=== PATIENT | female | born 1960 | race Caucasian/White ===

== ENCOUNTER 2017-10-13 15:34 | Emergency (ER) | payer OTHER ==
--- NOTE | 2017-10-13 15:37 | PDOC ---
Rapid Medical Evaluation Time Seen by Provider: 10/13/17 15:35 Medical Evaluation: Allergies Allergy/AdvReac Type Severity Reaction Status Date / Time SEAFOOD Allergy Swelling Uncoded 10/13/17 15:35 I have performed a brief in-person evaluation of this patient. The patient presents with a chief complaint of: swelling of right eye x 5 days Pertinent physical exam findings: right supraorbital swelling. I have ordered the following: nothing The patient will proceed to the ED for further evaluation. Discharge Disposition - Diagnosis Eye swelling, right - Referrals - Patient Instructions - Post Discharge Activity
[2017-10-13 15:38] VITALS: BP 143/91; PULSE 85; TEMP 98.6; BMI 29.9
--- NOTE | 2017-10-13 16:28 | PDOC ---
History of Present Illness - General Chief Complaint: Eye Problem Stated Complaint: RT EYE PAIN Time Seen by Provider: 10/13/17 15:35 - History of Present Illness Initial Comments: 57-year-old female with a past medical history of depression and hypertension presents for evaluation of right eye pain 5 days. She describes her pain as itchy worsen the morning gets better throughout the day no change in vision no other associated symptoms 10/13/17 16:25 Past History - Past Medical History Allergies/Adverse Reactions: Allergies Allergy/AdvReac Type Severity Reaction Status Date / Time SEAFOOD Allergy Swelling Uncoded 10/13/17 15:35 Home Medications: Ambulatory Orders Enalapril Maleate 5 mg PO DAILY 10/11/13 Simvastatin [Zocor -] 20 mg PO HS 10/11/13 Olopatadine HCl [Pataday] 1 drop OU DAILY #1 bottle 10/13/17 Sennosides [Senna] 8.6 mg PO DAILY 10/13/17 COPD: No DVT: No HTN: Yes Hypercholesterolemia: Yes Psychiatric Problems: Yes (DEPRESSION) - Suicide/Smoking/Psychosocial Hx Smoking History: Never smoked Have you smoked in the past 12 months: No Information on smoking cessation initiated: No Hx Alcohol Use: No Drug/Substance Use Hx: No Substance Use Type: None Review of Systems - Review of Systems HEENTM: Yes: Eye Pain All Other Systems: Reviewed and Negative *Physical Exam - Vital Signs Last Vital Signs Temp Pulse Resp BP Pulse Ox 98.6 F 85 18 143/91 100 10/13/17 15:37 10/13/17 15:37 10/13/17 15:37 10/13/17 15:37 10/13/17 15:37 - Physical Exam Comments: GENERAL: The patient is awake, alert, and fully oriented, in no acute distress. HEAD: Normal with no signs of trauma. EYES: sclera anicteric, conjunctiva clear. Pupils are equal round and reactive external ocular muscles are intact. There is mild upper lid swelling ENT: Ears normal NECK: Normal range of motion EXTREMITIES: Normal range of motion, no edema. No clubbing or cyanosis. No cords, erythema, or tenderness. NEUROLOGICAL: Cranial nerves II through XII grossly intact. Normal speech, normal gait. PSYCH: Normal mood, normal affect. SKIN: Warm, Dry, normal turgor, no rashes or lesions noted. 10/13/17 16:26 10/13/17 16:26 Medical Decision Making - Medical Decision Making 6 is most likely an ALLERGIC conjunctivitis I prescribed for her a Mastel stabilizer eyedrop. 10/13/17 16:26 *DC/Admit/Observation/Transfer Diagnosis at time of Disposition: Eye swelling, right, Allergic conjunctivitis - Discharge Dispostion Disposition: HOME Condition at time of disposition: Stable Decision to Admit order: No - Prescriptions Prescriptions: Olopatadine HCl [Pataday] 1 drop OU DAILY #1 bottle - Referrals Referrals: Daniel Taylor [Non Staff, Medical] - June Lara MD [Staff Physician] - Mike Palencia [Non Staff, Medical] - Eric Ott MD [Staff Physician] - Sammy Silver MD [Non Staff, Medical] - Rambo Scott [Non Staff, Medical] - Fara Orlando MD [Non Staff, Medical] - Moustapha Wang MD [Staff Physician] - Katlin Zambrano MD [Staff Physician] - - Patient Instructions Printed Discharge Instructions: Conjunctivitis, DI for Conjunctivitis Additional Instructions: Return to the emergency room should her symptoms worsen or go unresolved. Please use the eyedrops as directed. Follow-up with eye doctor in 1-2 days for further evaluation and treatment options. - Post Discharge Activity
== END 2017-10-13 16:43 | disposition home or self-care (01) ==
LOC: JERFT 15:34
DX: H10.11 Acute atopic conjunctivitis, right eye (principal); I10 Essential (primary) hypertension; E78.00 Pure hypercholesterolemia, unspecified; F32.9 Major depressive disorder, single episode, unspecified
CPT/HCPCS: 99281-25

== ENCOUNTER 2018-04-05 19:42 | Emergency (ER) | payer OTHER ==
[2018-04-05 20:09] VITALS: BP 148/73; PULSE 66; TEMP 97.9; BMI 35.9
--- NOTE | 2018-04-05 20:09 | PDOC ---
Rapid Medical Evaluation Chief Complaint: Pain, Acute Time Seen by Provider: 04/05/18 20:04 Medical Evaluation: Allergies Allergy/AdvReac Type Severity Reaction Status Date / Time SEAFOOD Allergy Swelling Uncoded 10/13/17 15:35 04/05/18 20:05 I performed a brief in person evaluation. CC: Left arm pain HPI: Pt is a 57 YO female with left arm pain x 14 days. PE: Skin: Clear Lungs: Clear Heart: RRR MS: Moves all extremities without difficulty. Pt has no deformity to left forearm. Pain upon palpation Neuro: Alert Psych: Appropriate affect Left forearm xray ordered. Pt will go to [facility] for further evaluation. Discharge Disposition - Diagnosis Arm pain Qualifiers: Laterality: left Qualified Code(s): M79.602 - Pain in left arm - Referrals - Patient Instructions - Post Discharge Activity
--- NOTE | 2018-04-05 21:29 | PDOC ---
History of Present Illness - General Chief Complaint: Pain, Acute Stated Complaint: ARM PAIN Time Seen by Provider: 04/05/18 20:04 - History of Present Illness Initial Comments: 04/05/18 21:27 57-year-old female presents for evaluation of left elbow pain after fall 2 weeks ago. Past History - Past Medical History Allergies/Adverse Reactions: Allergies Allergy/AdvReac Type Severity Reaction Status Date / Time SEAFOOD Allergy Swelling Uncoded 04/05/18 20:09 Home Medications: Ambulatory Orders Enalapril Maleate 5 mg PO DAILY 10/11/13 Simvastatin [Zocor -] 20 mg PO HS 10/11/13 Olopatadine HCl [Pataday] 1 drop OU DAILY #1 bottle 10/13/17 Sennosides [Senna] 8.6 mg PO DAILY 10/13/17 COPD: No DVT: No HTN: Yes Hypercholesterolemia: Yes Psychiatric Problems: Yes (DEPRESSION) - Suicide/Smoking/Psychosocial Hx Smoking History: Never smoked Have you smoked in the past 12 months: No Information on smoking cessation initiated: No Hx Alcohol Use: No Drug/Substance Use Hx: No Substance Use Type: None Review of Systems - Review of Systems Musculoskeletal: Yes: Joint Pain *Physical Exam - Vital Signs Last Vital Signs Temp Pulse Resp BP Pulse Ox 97.9 F 66 17 148/73 100 04/05/18 20:05 04/05/18 20:05 04/05/18 20:05 04/05/18 20:05 04/05/18 20:05 - Physical Exam Comments: 04/05/18 21:27 Left elbow skin color and temperature are normal. There is no swelling. She has full range of motion flexion and extension. She has full range of motion supination and pronation with mild discomfort at terminal supination. Minimal tenderness over the radial head. Upper extremity compartments are soft and nontender. She is neurovascularly intact without gross sensorimotor deficits. Moderate Sedation - Procedure Monitoring Vital Signs: Procedure Monitoring Vital Signs Temperature 97.9 F 04/05/18 20:05 Pulse Rate 66 04/05/18 20:05 Respiratory Rate 17 04/05/18 20:05 Blood Pressure 148/73 04/05/18 20:05 O2 Sat by Pulse Oximetry (%) 100 04/05/18 20:05 Medical Decision Making - Medical Decision Making 04/05/18 21:27 Left forearm x-rays show no evidence of fracture trauma or destructive process. The radial head is well-visualized. *DC/Admit/Observation/Transfer Diagnosis at time of Disposition: Sprain of elbow, left Arm pain Qualifiers: Laterality: left Qualified Code(s): M79.602 - Pain in left arm - Discharge Dispostion Disposition: HOME Condition at time of disposition: Stable Decision to Admit order: No - Referrals Referrals: Ricky Salgado MD [Staff Physician] - - Patient Instructions Printed Discharge Instructions: Elbow Sprain, DI for Elbow Sprain Additional Instructions: Return to the emergency room should symptoms worsen or go unresolved. Please follow-up with orthopedic surgery in one to 2 days for further evaluation and treatment options. He may have an elbow sprain or a fracture that is not showing up on x-ray today. Some point that you follow-up. You have full range of motion in all planes of motion of your elbow wrist and forearm. Splinting this will only make you steps. Avoid using your arm and please be sure to follow -up with orthopedic surgery as advised - Post Discharge Activity
== END 2018-04-05 21:47 | disposition home or self-care (01) ==
LOC: JERFT 19:42
DX: S53.492A Other sprain of left elbow, initial encounter (principal); W19.XXXA Unspecified fall, initial encounter; Y93.89 Activity, other specified; Y92.89 Other specified places as the place of occurrence of the external cause; Y99.8 Other external cause status; I10 Essential (primary) hypertension; E78.00 Pure hypercholesterolemia, unspecified; F32.9 Major depressive disorder, single episode, unspecified
CPT/HCPCS: 73090-TC-LT-FY; 99281-25

== ENCOUNTER 2020-11-14 23:43 | Emergency (ER) | payer OTHER ==
[2020-11-14 23:53] VITALS: BP 126/72; PULSE 65; TEMP 97.6; BMI 36.5
[2020-11-15] MEDS ORDERED: SODIUM CHLORIDE 0.9% 500 ML INFUS.BAG IV ONE (00:46)
[2020-11-15] MEDS ORDERED: FAMOTIDINE 20 MG/50 ML IVPB 20 MG/50 ML MG IVPB ONE ×2 (00:46→01:14)
[2020-11-15] MEDS ORDERED: ONDANSETRON 4 MG/2 ML VIAL IVPUSH ONE (00:46)
[2020-11-15] MEDS ORDERED: ACETAMINOPHEN 1000 MG/100 ML VIAL (NON FORMULARY) IVPB ONE (00:46)
[2020-11-15 01:12] LABS: BASO % 0.6 % (0-2.0); EOS % 1.7 % (0-4.5); HEMATOCRIT 38.5 % (32.4-45.2); HEMOGLOBIN 12.9 GM/dL (10.7-15.3); LYMPH % 15.9 % (8-40); MCH 28.6 pg (25.7-33.7); MCHC 33.6 g/dl (32.0-36.0); MEAN CELL VOLUME 85.2 fl (80-96); MEAN PLT VOLUME 8.2 fl (7.5-11.1); MONO % 8.7 % (3.8-10.2); NEUT % 73.1 % (42.8-82.8); PLATELET COUNT 316 10^3/uL (134-434); RBC 4.52 M/mm3 (3.60-5.2); RDW 14.1 % (11.6-15.6); WHITE BLOOD COUNT 11.2 K/mm3 (4.0-10.0)
[2020-11-15] MEDS ORDERED: ACETAMINOPHEN INJECTION 100 ML IVPB ONE (01:13)
[2020-11-15] MEDS ORDERED: ONDANSETRON 4 MG/2 ML VIAL ONE (01:13)
[2020-11-15 01:23] LABS: INR 1.03 (0.83-1.09); PROTHROMBIN TIME (PATIENT) 12.7 SEC (9.7-13.0)
[2020-11-15 01:25] LABS: ACTIVATED PTT 32.1 SECONDS (25.2-36.5)
[2020-11-15 01:30] LABS: CHLORIDE 102 mmol/L (98-107); SODIUM 140 mmol/L (136-145)
[2020-11-15 01:32] LABS: CALCIUM 9.3 mg/dL (8.5-10.1)
[2020-11-15 01:33] LABS: ALBUMIN 3.8 g/dl (3.4-5.0); ANION GAP 9 MMOL/L (8-16); BLOOD UREA NITROGEN 24.6 mg/dL (7-18); CO2 29 mmol/L (21-32); GLUCOSE,RANDOM 156 mg/dL (74-106); LIPASE 109 U/L (73-393)
[2020-11-15 01:35] LABS: SGOT/AST 69 U/L (15-37); SGPT/ALT 93 U/L (13-61)
[2020-11-15 01:37] LABS: BILIRUBIN,TOTAL 0.3 mg/dL (0.2-1)
[2020-11-15 01:38] LABS: ALK PHOS 105 U/L (45-117)
== END 2020-11-15 04:37 | disposition home or self-care (01) ==
LOC: JER 23:43
PROC: 3E033GC Introduction of Other Therapeutic Substance into Peripheral Vein, Percutaneous Approach (ICD-10-PCS; principal; 2020-11-14)
DX: M79.3 Panniculitis, unspecified (principal)
CPT/HCPCS: 36415; 71045-TC-FY; 74177-TC; 80053; 82550; 83605; 83690; 84484; 85025; 85610; 85730; 93005; 93010; 99285-25; C9803; J0131; U0003; U0005

== ENCOUNTER 2021-02-11 04:31 | Emergency (ER) | payer OTHER ==
[2021-02-11 05:10] VITALS: BP 142/85; PULSE 60; TEMP 98.4; BMI 32.7
[2021-02-11] MEDS ORDERED: FAMOTIDINE 20 MG/50 ML IVPB 20 MG/50 ML MG IVPB ONE ×2 (05:34→05:50)
[2021-02-11] MEDS ORDERED: ACETAMINOPHEN 1000 MG/100 ML VIAL IVPB ONE (05:34)
[2021-02-11] MEDS ORDERED: MAG HYDROX/AL HYDROX/SIMETH -MYLANTA- ORAL SUSPENSION PO ONE (05:34)
[2021-02-11] MEDS ORDERED: ACETAMINOPHEN INJECTION 100 ML IVPB ONE (05:49)
[2021-02-11] MEDS ORDERED: MAG HYDROX/AL HYDROX/SIMETH 30 ML UNIT-DOSE CUP ONE (05:50)
[2021-02-11 06:27] LABS: BASO % 0.6 % (0-2.0); EOS % 1.3 % (0-4.5); HEMATOCRIT 39.5 % (32.4-45.2); HEMOGLOBIN 13.4 GM/dL (10.7-15.3); LYMPH % 15.7 % (8-40); MCH 29.6 pg (25.7-33.7); MCHC 33.8 g/dl (32.0-36.0); MEAN CELL VOLUME 87.4 fl (80-96); MONO % 9.2 % (3.8-10.2); NEUT % 73.2 % (42.8-82.8); PLATELET COUNT 289 10^3/uL (134-434); RBC 4.52 M/mm3 (3.60-5.2); RDW 14.7 % (11.6-15.6); WHITE BLOOD COUNT 9.1 K/mm3 (4.0-10.0)
[2021-02-11 06:28] LABS: PH,URINE 6.5 (5.0-8.0); URINE APPEARANCE CLEAR; URINE BILIRUBIN NEGATIVE (NEGATIVE); URINE COLOR YELLOW; URINE GLUCOSE (UA) NEGATIVE (NEGATIVE); URINE KETONE NEGATIVE (NEGATIVE); URINE LEUK ESTERASE NEGATIVE (NEGATIVE); URINE NITRITE NEGATIVE (NEGATIVE); URINE PROTEIN NEGATIVE (NEGATIVE); URINE UROBILINOGEN 0.2 mg/dL (0.2-1.0)
[2021-02-11 06:45] LABS: CHLORIDE 101 mmol/L (98-107); SODIUM 139 mmol/L (136-145)
[2021-02-11 06:47] LABS: ALBUMIN 3.6 g/dl (3.4-5.0); ANION GAP 8 MMOL/L (8-16); BLOOD UREA NITROGEN 20.8 mg/dL (7-18); CALCIUM 9.7 mg/dL (8.5-10.1); CO2 31 mmol/L (21-32)
[2021-02-11 06:48] LABS: GLUCOSE,RANDOM 124 mg/dL (74-106)
[2021-02-11 06:50] LABS: SGOT/AST 143 U/L (15-37); SGPT/ALT 134 U/L (13-61)
[2021-02-11 06:51] LABS: CREATININE 0.9 mg/dL (0.55-1.3)
[2021-02-11 06:52] LABS: BILIRUBIN,TOTAL 0.6 mg/dL (0.2-1); TOT PROT 7.8 g/dl (6.4-8.2)
[2021-02-11 06:53] LABS: ALK PHOS 101 U/L (45-117)
[2021-02-11 07:03] LABS: INR 1.07 (0.83-1.09); PROTHROMBIN TIME (PATIENT) 12.5 SEC (9.7-13.0)
== END 2021-02-11 07:30 ==
LOC: JER 04:31
PROC: 3E033NZ Introduction of Analgesics, Hypnotics, Sedatives into Peripheral Vein, Percutaneous Approach (ICD-10-PCS; principal; 2021-02-11)
PROC: 3E033GC Introduction of Other Therapeutic Substance into Peripheral Vein, Percutaneous Approach (ICD-10-PCS; 2021-02-11)
DX: R10.11 Right upper quadrant pain (principal)
CPT/HCPCS: 36415; 80053; 81003; 82550; 83690; 84484; 85025; 85610; 86850; 86900; 86901; 87086; 93005; 93010; 96365; 96375; 99284-25; C9803; J0131; U0003; U0005

== ENCOUNTER 2021-06-11 19:29 | Inpatient (IN) | payer OTHER ==
[2021-06-11 19:38] VITALS: BMI 29.2
[2021-06-11] MEDS ORDERED: FAMOTIDINE 20 MG/50 ML IVPB 20 MG/50 ML MG IVPB ONE ×2 (21:33→22:02)
[2021-06-11] MEDS ORDERED: SODIUM CHLORIDE 1,000 ML IV STA (21:33)
[2021-06-11] MEDS ORDERED: MAG HYDROX/AL HYDROX/SIMETH 30 ML UNIT-DOSE CUP PO ONE (21:33)
[2021-06-11] MEDS ORDERED: MAG HYDROX/AL HYDROX/SIMETH 30 ML UNIT-DOSE CUP ONE (22:01)
[2021-06-11 22:40] LABS: BASO % 0.5 % (0-2.0); EOS % 1.2 % (0-4.5); HEMATOCRIT 38.7 % (32.4-45.2); HEMOGLOBIN 13.1 GM/dL (10.7-15.3); LYMPH % 18.6 % (8-40); MCH 29.2 pg (25.7-33.7); MEAN CELL VOLUME 86.1 fl (80-96); MONO % 8.7 % (3.8-10.2); PLATELET COUNT 290 10^3/uL (134-434); RBC 4.49 M/mm3 (3.60-5.2); RDW 14.4 % (11.6-15.6); WHITE BLOOD COUNT 7.2 K/mm3 (4.0-10.0)
[2021-06-11 22:49] LABS: EPI CELLS >36 /uL (0-25.1); HYALINE CASTS 1 /uL (0-3.1); URINE APPEARANCE CLOUDY; URINE BACTERIA 1508 /uL (0-1359); URINE BILIRUBIN NEGATIVE (NEGATIVE); URINE COLOR YELLOW; URINE GLUCOSE (UA) NEGATIVE (NEGATIVE); URINE KETONE NEGATIVE (NEGATIVE); URINE LEUK ESTERASE TRACE (NEGATIVE); URINE NITRITE NEGATIVE (NEGATIVE); URINE PROTEIN NEGATIVE (NEGATIVE); URINE RBC 3 /uL (0-23.9); URINE WBC 29 /uL (0-25.8)
[2021-06-11 23:01] LABS: ALBUMIN 3.8 g/dl (3.4-5.0); BLOOD UREA NITROGEN 21.8 mg/dL (7-18); CALCIUM 9.6 mg/dL (8.5-10.1)
[2021-06-11 23:04] LABS: CREATININE 0.9 mg/dL (0.55-1.3)
[2021-06-11 23:06] LABS: BILIRUBIN,TOTAL 0.8 mg/dL (0.2-1); TOT PROT 7.6 g/dl (6.4-8.2)
[2021-06-12] MEDS ORDERED: PIPERACILLIN/TAZOB 4.5 GM 4.5 GM in DEXTROSE 5%-WATER 100 ML IVPB ONE (03:01)
[2021-06-12] MEDS ORDERED: PIPERACILLIN/TAZOB 4.5 GM 4.5 GM/100 ML BAG IVPB ONE (05:23)
[2021-06-12] MEDS ORDERED: SODIUM CHLORIDE 1,000 ML IV SCH (05:45)
[2021-06-12] MEDS: INSULIN SLIDING SCALE (NOVOLOG) 1 VIAL SQ SCH ×4 (06:58→22:02)
[2021-06-12 07:14] LABS: HEMATOCRIT 35.5 % (32.4-45.2); HEMOGLOBIN 12.5 GM/dL (10.7-15.3); MCH 30.4 pg (25.7-33.7); MCHC 35.2 g/dl (32.0-36.0); MEAN CELL VOLUME 86.3 fl (80-96); MEAN PLT VOLUME 8.4 fl (7.5-11.1); PLATELET COUNT 255 10^3/uL (134-434); RBC 4.11 M/mm3 (3.60-5.2); RDW 14.2 % (11.6-15.6); WHITE BLOOD COUNT 4.7 K/mm3 (4.0-10.0)
[2021-06-12 07:39] LABS: ALBUMIN 3.5 g/dl (3.4-5.0); BLOOD UREA NITROGEN 20.6 mg/dL (7-18); MAGNESIUM 2.7 mg/dL (1.8-2.4)
[2021-06-12 07:42] LABS: CREATININE 0.7 mg/dL (0.55-1.3)
[2021-06-12 07:44] LABS: BILIRUBIN,TOTAL 2.1 mg/dL (0.2-1); TOT PROT 6.8 g/dl (6.4-8.2)
[2021-06-12] MEDS ORDERED: POTASSIUM PHOSPHATE 15 MM in DEXTROSE 5%-WATER - 250 ML IVPB ONE (08:46)
[2021-06-12] MEDS ORDERED: KCL 10 MEQ IVPB 10 MEQ/100 ML INFUS.BAG IVPB SCH ×2 (09:30→17:00)
[2021-06-12] MEDS ORDERED: PIPERACILLIN/TAZOB 3.375 GM 3.375 GM in DEXTROSE 5%-WATER - 50 ML IVPB SCH (10:00)
[2021-06-12] MEDS ORDERED: PIPERACILLIN/TAZOBACTAM 3.375 GM VIAL IVPB ONE ×2 (11:51→18:11)
[2021-06-12] MEDS ORDERED: DEXTROSE 5%-WATER - 50 ML IVPB ONE ×2 (11:51→18:11)
[2021-06-12] MEDS: PIPERACILLIN/TAZOB 3.375 GM 3.375 GM in DEXTROSE 5%-WATER - 50 ML IVPB SCH ×2 (12:49→18:11)
[2021-06-12] MEDS ORDERED: ONDANSETRON 4 MG/2 ML VIAL IVPUSH PRN (13:49)
[2021-06-12 14:21] LABS: BASO % 0.2 % (0-2.0); EOS % 0.2 % (0-4.5); HEMATOCRIT 39.1 % (32.4-45.2); HEMOGLOBIN 12.9 GM/dL (10.7-15.3); LYMPH % 3.6 % (8-40); MCH 28.6 pg (25.7-33.7); MCHC 32.9 g/dl (32.0-36.0); MEAN CELL VOLUME 86.9 fl (80-96); MEAN PLT VOLUME 8.6 fl (7.5-11.1); MONO % 5.6 % (3.8-10.2); NEUT % 90.4 % (42.8-82.8); PLATELET COUNT 309 10^3/uL (134-434); RDW 14.4 % (11.6-15.6)
[2021-06-12 14:55] LABS: CALCIUM 9.4 mg/dL (8.5-10.1)
[2021-06-12 14:56] LABS: ALBUMIN 3.6 g/dl (3.4-5.0); BLOOD UREA NITROGEN 17.4 mg/dL (7-18)
[2021-06-12 14:59] LABS: CREATININE 0.9 mg/dL (0.55-1.3)
[2021-06-12 15:00] LABS: BILIRUBIN,TOTAL 2.7 mg/dL (0.2-1); TOT PROT 7.1 g/dl (6.4-8.2)
[2021-06-12] MEDS: LACTATED RINGERS SOLUTION 1,000 ML/1,000 ML INFUS.BAG IV SCH (18:12)
[2021-06-13] MEDS ORDERED: PIPERACILLIN/TAZOBACTAM 3.375 GM VIAL IVPB ONE ×3 (01:09→17:14)
[2021-06-13] MEDS ORDERED: DEXTROSE 5%-WATER - 50 ML IVPB ONE ×3 (01:09→17:15)
[2021-06-13] MEDS: PIPERACILLIN/TAZOB 3.375 GM 3.375 GM in DEXTROSE 5%-WATER - 50 ML IVPB SCH ×3 (01:28→17:37)
[2021-06-13] MEDS: INSULIN SLIDING SCALE (NOVOLOG) 1 VIAL SQ SCH ×4 (06:43→21:35)
[2021-06-13] MEDS ORDERED: PIPERACILLIN/TAZOB 3.375 GM 3.375 GM in DEXTROSE 5%-WATER - 50 ML IVPB SCH (10:00)
[2021-06-13] MEDS: LACTATED RINGERS SOLUTION 1,000 ML/1,000 ML INFUS.BAG IV SCH ×3 (10:01→22:54)
[2021-06-13 11:14] LABS: BASO % 0.9 % (0-2.0); EOS % 4.6 % (0-4.5); HEMATOCRIT 34.9 % (32.4-45.2); HEMOGLOBIN 11.9 GM/dL (10.7-15.3); LYMPH % 24.1 % (8-40); MCH 29.7 pg (25.7-33.7); MEAN CELL VOLUME 87.5 fl (80-96); MEAN PLT VOLUME 8.4 fl (7.5-11.1); MONO % 10.5 % (3.8-10.2); NEUT % 59.9 % (42.8-82.8); PLATELET COUNT 242 10^3/uL (134-434); RBC 3.99 M/mm3 (3.60-5.2); RDW 14.7 % (11.6-15.6); WHITE BLOOD COUNT 4.7 K/mm3 (4.0-10.0)
[2021-06-13 11:20] LABS: INR 1.2 (0.83-1.09); PROTHROMBIN TIME (PATIENT) 13.8 SEC (9.7-13.0)
[2021-06-13 11:23] LABS: ACTIVATED PTT 33.6 SECONDS (25.2-36.5)
[2021-06-13 11:44] LABS: ALBUMIN 3.2 g/dl (3.4-5.0); BLOOD UREA NITROGEN 17.7 mg/dL (7-18); CREATININE 0.7 mg/dL (0.55-1.3)
[2021-06-13 11:45] LABS: BILIRUBIN,TOTAL 0.8 mg/dL (0.2-1); CALCIUM 9.3 mg/dL (8.5-10.1); TOT PROT 6.6 g/dl (6.4-8.2)
[2021-06-13] MEDS: URSODIOL 300 MG CAPSULE PO SCH ×2 (13:52→21:33)
[2021-06-14] MEDS ORDERED: PIPERACILLIN/TAZOBACTAM 3.375 GM VIAL IVPB ONE (01:19)
[2021-06-14] MEDS ORDERED: DEXTROSE 5%-WATER - 50 ML IVPB ONE (01:19)
[2021-06-14] MEDS: PIPERACILLIN/TAZOB 3.375 GM 3.375 GM in DEXTROSE 5%-WATER - 50 ML IVPB SCH (01:38)
[2021-06-14] MEDS: INSULIN SLIDING SCALE (NOVOLOG) 1 VIAL SQ SCH ×4 (06:08→21:45)
[2021-06-14 09:38] LABS: INR 1.15 (0.83-1.09); PROTHROMBIN TIME (PATIENT) 13.2 SEC (9.7-13.0)
[2021-06-14 09:40] LABS: ACTIVATED PTT 36.9 SECONDS (25.2-36.5)
[2021-06-14] MEDS: URSODIOL 300 MG CAPSULE PO SCH ×2 (09:42→21:45)
[2021-06-14 10:18] LABS: ALBUMIN 3.4 g/dl (3.4-5.0); BLOOD UREA NITROGEN 12.8 mg/dL (7-18); CALCIUM 9.4 mg/dL (8.5-10.1)
[2021-06-14 10:20] LABS: CREATININE 0.7 mg/dL (0.55-1.3)
[2021-06-14 10:23] LABS: TOT PROT 6.8 g/dl (6.4-8.2)
[2021-06-14 10:24] LABS: BILIRUBIN,TOTAL 0.6 mg/dL (0.2-1)
[2021-06-14 10:54] LABS: BASO % 0.6 % (0-2.0); HEMOGLOBIN 11.7 GM/dL (10.7-15.3); LYMPH % 27.1 % (8-40); MCH 28.4 pg (25.7-33.7); MCHC 32.6 g/dl (32.0-36.0); MEAN CELL VOLUME 87.2 fl (80-96); MEAN PLT VOLUME 8.7 fl (7.5-11.1); MONO % 9.6 % (3.8-10.2); NEUT % 57.7 % (42.8-82.8); PLATELET COUNT 256 10^3/uL (134-434); RBC 4.13 M/mm3 (3.60-5.2); RDW 14.4 % (11.6-15.6); WHITE BLOOD COUNT 5.1 K/mm3 (4.0-10.0)
[2021-06-15] MEDS: INSULIN SLIDING SCALE (NOVOLOG) 1 VIAL SQ SCH ×4 (06:05→22:58)
[2021-06-15 08:45] LABS: BASO % 0.7 % (0-2.0); EOS % 4.9 % (0-4.5); HEMATOCRIT 36.9 % (32.4-45.2); HEMOGLOBIN 12.3 GM/dL (10.7-15.3); MCH 29.2 pg (25.7-33.7); MCHC 33.3 g/dl (32.0-36.0); MEAN CELL VOLUME 87.6 fl (80-96); MEAN PLT VOLUME 8.5 fl (7.5-11.1); MONO % 10.9 % (3.8-10.2); NEUT % 58.5 % (42.8-82.8); PLATELET COUNT 286 10^3/uL (134-434); RBC 4.21 M/mm3 (3.60-5.2); RDW 14.2 % (11.6-15.6); WHITE BLOOD COUNT 6.3 K/mm3 (4.0-10.0)
[2021-06-15 08:46] LABS: ALBUMIN 3.5 g/dl (3.4-5.0); BLOOD UREA NITROGEN 14.7 mg/dL (7-18); CALCIUM 9.6 mg/dL (8.5-10.1)
[2021-06-15 08:49] LABS: CREATININE 0.7 mg/dL (0.55-1.3)
[2021-06-15 08:52] LABS: BILIRUBIN,TOTAL 0.5 mg/dL (0.2-1)
[2021-06-15] MEDS: URSODIOL 300 MG CAPSULE PO SCH ×2 (09:16→22:55)
[2021-06-16] MEDS: INSULIN SLIDING SCALE (NOVOLOG) 1 VIAL SQ SCH ×4 (07:03→21:40)
[2021-06-16] MEDS ORDERED: BUPIVACAINE HCL/PF 0.5% (5MG/ML) 10 ML VIAL ONE (09:29)
[2021-06-16] MEDS: URSODIOL 300 MG CAPSULE PO SCH (09:58)
[2021-06-16 10:41] LABS: INR 1.09 (0.83-1.09); PROTHROMBIN TIME (PATIENT) 12.6 SEC (9.7-13.0)
[2021-06-16 10:43] LABS: BASO % 0.9 % (0-2.0); EOS % 3.3 % (0-4.5); HEMATOCRIT 34.5 % (32.4-45.2); HEMOGLOBIN 11.9 GM/dL (10.7-15.3); LYMPH % 24.1 % (8-40); MCH 30.2 pg (25.7-33.7); MCHC 34.6 g/dl (32.0-36.0); MEAN CELL VOLUME 87.4 fl (80-96); MEAN PLT VOLUME 8.1 fl (7.5-11.1); MONO % 9.4 % (3.8-10.2); NEUT % 62.3 % (42.8-82.8); PLATELET COUNT 272 10^3/uL (134-434); RBC 3.94 M/mm3 (3.60-5.2); RDW 14.6 % (11.6-15.6); WHITE BLOOD COUNT 5.4 K/mm3 (4.0-10.0)
[2021-06-16 10:44] LABS: ACTIVATED PTT 36.9 SECONDS (25.2-36.5)
[2021-06-16 10:55] LABS: ALBUMIN 3.2 g/dl (3.4-5.0); BLOOD UREA NITROGEN 13.9 mg/dL (7-18); CALCIUM 9.1 mg/dL (8.5-10.1)
[2021-06-16 10:58] LABS: CREATININE 0.7 mg/dL (0.55-1.3)
[2021-06-16 11:00] LABS: BILIRUBIN,TOTAL 0.6 mg/dL (0.2-1)
[2021-06-16] MEDS ORDERED: PROPOFOL 20 ML ONE (11:01)
[2021-06-16] MEDS ORDERED: ROCURONIUM BROMIDE 50 MG/5 ML SYRINGE ONE (11:01)
[2021-06-16] MEDS ORDERED: MIDAZOLAM HCL 2 MG/2 ML SINGLE DOSE VIAL ONE (11:01)
[2021-06-16] MEDS ORDERED: ceFAZolin SODIUM 1 GM VIAL IVPB ONE (11:32)
[2021-06-16] MEDS ORDERED: ceFAZolin SODIUM 1 GM VIAL ONE (11:34)
[2021-06-16] MEDS ORDERED: KETOROLAC TROMETHAMINE 30 MG/1 ML VIAL ONE (11:34)
[2021-06-16] MEDS ORDERED: DEXAMETHASONE SOD PHOSPHATE 4 MG/1 ML VIAL ONE (11:34)
[2021-06-16] MEDS ORDERED: NEOSTIGMINE METHYLSULFATE 0.5 MG/ML - 10 ML MDV ONE (11:53)
[2021-06-16] MEDS ORDERED: BUPIVACAINE HCL/PF 0.5% (5 MG/ML) 30 ML VIAL IJ ONE (12:04)
[2021-06-16] MEDS ORDERED: ACETAMINOPHEN INJECTION 100 ML IVPB ONE (12:30)
[2021-06-16] MEDS ORDERED: ACETAMINOPHEN 1000 MG/100 ML BAG IVPB ONE ×2 (12:36→12:56)
[2021-06-16] MEDS ORDERED: ONDANSETRON 4 MG/2 ML VIAL IVPUSH PRN ×3 (12:36→12:56)
[2021-06-16] MEDS ORDERED: PROMETHAZINE HCL 25 MG/1 ML VIAL IVPUSH PRN (12:36)
[2021-06-16] MEDS ORDERED: LACTATED RINGERS SOLUTION 1,000 ML IV SCH (12:45)
[2021-06-16] MEDS ORDERED: ACETAMINOPHEN 325 MG TABLET (FP) PO PRN (13:00)
[2021-06-16] MEDS ORDERED: oxyCODONE HCL 5 MG TABLET PO PRN (13:00)
[2021-06-16] MEDS: LACTATED RINGERS SOLUTION 1,000 ML/1,000 ML INFUS.BAG IV SCH (13:55)
[2021-06-17] MEDS: INSULIN SLIDING SCALE (NOVOLOG) 1 VIAL SQ SCH ×2 (06:03→11:33)
[2021-06-17] MEDS ORDERED: ENOXAPARIN NA (PORCINE) 40 MG/0.4 ML DISP.SYRIN SQ SCH (10:00)
[2021-06-17 10:07] LABS: BASO % 0.6 % (0-2.0); HEMATOCRIT 34.9 % (32.4-45.2); HEMOGLOBIN 11.5 GM/dL (10.7-15.3); LYMPH % 22.1 % (8-40); MCH 28.9 pg (25.7-33.7); MCHC 32.9 g/dl (32.0-36.0); MEAN CELL VOLUME 87.7 fl (80-96); MEAN PLT VOLUME 8.4 fl (7.5-11.1); MONO % 7.5 % (3.8-10.2); NEUT % 68.8 % (42.8-82.8); PLATELET COUNT 299 10^3/uL (134-434); RBC 3.98 M/mm3 (3.60-5.2); RDW 14.2 % (11.6-15.6); WHITE BLOOD COUNT 7.1 K/mm3 (4.0-10.0)
[2021-06-17 10:34] LABS: BLOOD UREA NITROGEN 14.5 mg/dL (7-18); CALCIUM 8.9 mg/dL (8.5-10.1)
[2021-06-17 10:37] LABS: CREATININE 0.8 mg/dL (0.55-1.3)
[2021-06-17 10:39] LABS: TOT PROT 6.5 g/dl (6.4-8.2)
[2021-06-17 10:43] LABS: BILIRUBIN,TOTAL 0.5 mg/dL (0.2-1)
[2021-06-17] MEDS: LACTATED RINGERS SOLUTION 1,000 ML/1,000 ML INFUS.BAG IV SCH (11:20)
[2021-06-17 14:22] VITALS: BP 104/42; PULSE 65; TEMP 98.1
== END 2021-06-17 15:57 | disposition home or self-care (01) | DRG 263 ==
LOC: JER 19:29 → JERBED 06-12 03:00 → J5S 06-12 06:39
PROVIDERS: ADMIT Internal Medicine; ATTEND Internal Medicine
PROC: 0FT44ZZ Resection of Gallbladder, Percutaneous Endoscopic Approach (ICD-10-PCS; principal; 2021-06-16 11:00)
DX: K80.61 Calculus of gallbladder and bile duct with cholecystitis, unspecified, with obstruction (principal); I10 Essential (primary) hypertension; K65.4 Sclerosing mesenteritis; E78.5 Hyperlipidemia, unspecified; K21.9 Gastro-esophageal reflux disease without esophagitis
CPT/HCPCS: 36415; 74177-TC; 74181-TC; 76705-TC; 78226-TC; 80053; 81003; 82962; 83690; 83735; 84484; 85025; 85027; 85610; 85730; 86705; 86708; 86803; 86850; 86900; 86901; 87040; 87086; 87340; 87517; 88304-TC; 93005; 93010; 94010; 94760; 99285-25; A9537; C9803-CS; U0003; U0005

== ENCOUNTER 2022-04-04 23:40 | Emergency (ER) | payer OTHER ==
[2022-04-04 23:47] VITALS: BP 155/84; PULSE 68; RESP 17; BMI 28.3
[2022-04-04 23:50] VITALS: TEMP 98
== END 2022-04-05 01:37 | disposition home or self-care (01) ==
LOC: JER 23:40
DX: G56.31 Lesion of radial nerve, right upper limb (principal)
CPT/HCPCS: 70450-TC; 99284-25

== ENCOUNTER 2023-10-16 17:15 | Emergency (ER) | payer OTHER ==
[2023-10-16 17:26] VITALS: BP 130/67; PULSE 56; RESP 16; TEMP 98.6; BMI 29.2
[2023-10-16] MEDS ORDERED: IBUPROFEN 600 MG TABLET (FP) PO ONE (18:13)
[2023-10-16] MEDS ORDERED: SULFAMETHOXAZOLE/TRIMETHOPRIM 800MG/160MG D.S. TABLET ONE (18:13)
[2023-10-16] MEDS: IBUPROFEN 600 MG TABLET (FP) PO ONE (18:15)
[2023-10-16] MEDS: SULFAMETHOXAZOLE/TRIMETHOPRIM 800MG/160MG D.S. TABLET PO ONE (18:15)
== END 2023-10-16 18:32 | disposition home or self-care (01) ==
LOC: JERFT 17:15
PROC: 0H9CXZZ Drainage of Left Upper Arm Skin, External Approach (ICD-10-PCS; principal; 2023-10-16)
DX: L02.414 Cutaneous abscess of left upper limb (principal)
CPT/HCPCS: 99283-25

== ENCOUNTER 2023-10-18 20:18 | Emergency (ER) | payer OTHER ==
[2023-10-18 20:23] VITALS: BP 124/76; PULSE 60; RESP 18; TEMP 97; BMI 29.2
== END 2023-10-18 21:25 | disposition home or self-care (01) ==
LOC: JERFT 20:18
DX: L02.414 Cutaneous abscess of left upper limb (principal); Z48.01 Encounter for change or removal of surgical wound dressing
CPT/HCPCS: 99283-25